=== PATIENT | male | born 1965 | race Caucasian/White ===

== ENCOUNTER → 2021-09-19 | Outpatient (CLI) | payer OTHER ==
[~2021-09-19] MED LIST: ALDACTONE 25MG25 MG PO; ALDACTONE25 MG PO; BAYER CHEWABLE81 MG PO; BRILINTA90 MG PO; CARVEDILOL6.25 MG PO; ENTRESTO 24 MG1 EACH PO; LASIX40 MG PO; LIPITOR TAB 2020 MG PO; POTASSIUM CHLO10 ME2 PO; PROAIR DIGIHAL90 MCG INH; SPIRIVA18 MCG INH; VITAMIN D-40010 MCG PO
== END ==
LOC: HEART CORB 08:00
DX: R94.31 Abnormal electrocardiogram [ECG] [EKG] (principal); I11.0 Hypertensive heart disease with heart failure; I50.9 Heart failure, unspecified; R07.2 Precordial pain; R06.02 Shortness of breath; J44.9 Chronic obstructive pulmonary disease, unspecified; F17.210 Nicotine dependence, cigarettes, uncomplicated; I08.1 Rheumatic disorders of both mitral and tricuspid valves; I27.20 Pulmonary hypertension, unspecified
CPT/HCPCS: 93306

== ENCOUNTER → 2021-09-26 | Outpatient (CLI) | payer OTHER ==
[2021-09-26 13:55] LABS: HEMOGLOBIN 18.3 gm/dl (14.0-17.5); RED BLOOD COUNT 6.06 M/UL (4.20-5.50); WHITE BLOOD COUNT 7.8 K/UL (4.5-11.0)
[2021-09-26 14:14] LABS: BUN/CREATININE RATIO 13 (0-10)
== END ==
LOC: LAB 13:11
PROVIDERS: Internal Medicine Interventional Cardiology
DX: J44.9 Chronic obstructive pulmonary disease, unspecified (principal); I21.9 Acute myocardial infarction, unspecified; I11.0 Hypertensive heart disease with heart failure; I50.20 Unspecified systolic (congestive) heart failure; I42.0 Dilated cardiomyopathy; B19.20 Unspecified viral hepatitis C without hepatic coma; I34.0 Nonrheumatic mitral (valve) insufficiency; R07.2 Precordial pain; I27.20 Pulmonary hypertension, unspecified; R06.02 Shortness of breath; I25.2 Old myocardial infarction; R94.31 Abnormal electrocardiogram [ECG] [EKG]
CPT/HCPCS: 36415; 80048; 85025; 85610; 85730; 93005

== ENCOUNTER 2021-10-02 07:40 | Observation (INO) | payer OTHER ==
[~2021-10-02] VITALS: Ht 182.9 cm; Wt 95.7 kg
[2021-10-02] MEDS ORDERED: CARVEDILOL6.25 MG PO (08:23)
[2021-10-02] MEDS ORDERED: ENTRESTO 24 MG1 EACH PO (08:23)
[2021-10-02] MEDS ORDERED: LIPITOR TAB 2020 MG PO (08:23)
[2021-10-02] MEDS ORDERED: BAYER CHEWABLE81 MG PO (08:24)
[2021-10-02] MEDS ORDERED: ALDACTONE25 MG PO (08:24)
[2021-10-02] MEDS ORDERED: LASIX40 MG PO (08:25)
[2021-10-02] MEDS ORDERED: POTASSIUM CHLO10 ME2 PO (08:25)
[2021-10-02] MEDS ORDERED: SPIRIVA18 MCG INH (08:26)
[2021-10-02] MEDS ORDERED: PROAIR DIGIHAL90 MCG INH (08:27)
[2021-10-02] MEDS ORDERED: VITAMIN D-40010 MCG PO (12:00)
[2021-10-02] MEDS ORDERED: ALDACTONE 25MG25 MG PO (12:02)
[2021-10-02 18:20] LABS: HEMOGLOBIN 17.1 gm/dl (14.0-17.5); RED BLOOD COUNT 5.69 M/UL (4.20-5.50); WHITE BLOOD COUNT 8.2 K/UL (4.5-11.0)
[2021-10-02 18:32] LABS: BUN/CREATININE RATIO 13 (0-10)
[2021-10-03 02:03] LABS: HEMOGLOBIN 16.4 gm/dl (14.0-17.5); RED BLOOD COUNT 5.56 M/UL (4.20-5.50); WHITE BLOOD COUNT 9.4 K/UL (4.5-11.0)
[2021-10-03 02:25] LABS: BUN/CREATININE RATIO 12 (0-10)
[2021-10-03] MEDS ORDERED: BRILINTA90 MG PO (13:39)
== END 2021-10-03 14:05 | disposition home or self-care (01) ==
LOC: CATH 07:40 → PROG CARE 07:41 → CATH 08:00 → PROG CARE 10:49 → CATH 10:49 → PROG CARE 10-03 14:05
PROVIDERS: ADMIT Internal Medicine Interventional Cardiology
DX: I25.118 Atherosclerotic heart disease of native coronary artery with other forms of angina pectoris (principal); J44.9 Chronic obstructive pulmonary disease, unspecified; I42.0 Dilated cardiomyopathy; I11.0 Hypertensive heart disease with heart failure; I50.20 Unspecified systolic (congestive) heart failure; E78.5 Hyperlipidemia, unspecified
CPT/HCPCS: 36415; 80048; 82550; 82553; 84484; 85025; 85347; 93005; 99152; 99153; C1725; C1751; C1769; C1874; C1887; C9600; G0378; J0461; J1170; J1644; J2250; J2370; J3010; J3246; J7040; Q9967